=== PATIENT | female | born 1975 | race Caucasian/White ===

== ENCOUNTER → 2016-05-23 | Outpatient (CLI) | payer OTHER ==
[~2016-05-23] MED LIST: ALBUTEROL17 GM INH; AMOXICILLIN500 M1 PO; AMOXICILLIN875 MG PO; BACTRIM DS TABL1 TA1 PO; BACTROBAN22 GM TOP; BENTYL10 MG PO; BENTYL20 M1; BIRTH CONTROL PILLS; BROMPHED DM; CIPRO PO; CLEOCIN HCL300 M1 PO; DICYCLOMINE HCL20 MG PO; DIFLUCAN PO; FLAGYL; FLAGYL PO; FLEXERIL PO; IBUPROFEN800 MG PO; IMODIUM2 MG PO; LORTAB 5-325 M1 EACH PO; LORTAB 5/500 TA1 TA1 PO; METHADOSE5 MG PO; NEURONTIN300 MG PO; NEURONTIN600 MG PO; NO MEDICATIONS; OMEPRAZOLE40 M1 PO; PEPCID AC20 M2 PO; PERCOCET 5-3251 TAB PO; PHENERGAN25 MG PO; PREDNISONE; PREDNISONE PO; PSEUDOEPHEDRIN120 M1 PO; PYRIDIUM100 MG PO; STERAPRED5 MG/DOSE1 PO; SYMBICORT INH; TRAMADOL HCL50 M1; TRAMADOL HCL50 M1 PO; VICODIN PO; VOLTAREN75 MG PO; WAL-PHED PO; WELLBUTRIN PO; ZITHROMAX1 G/PKT PO; ZOFRAN ODT4 MG PO; ZOFRAN ODT4 MG/UDTAB PO
--- NOTE | ~2016-05-23 | CR63 ---
[facility]. [facility] A Service of [facility] & [facility] RADIOLOGY TEXT RESULTS PATIENT: PHANI TROTTER LOCATION: [facility] : 75 UNIT #: [id number] AGE: [address]: ANGELA RENTERIA MD SEX: F ORDER DR: [id number] [address] [address] [id number] O MR#: [id number] Acc #: [id number] NAME: PHANI TROTTER : 1975 SEX: F STUDY DATE/TIME: 05/23/2016 14:40 UNIT: [facility] ROOM: STUDY DESCRIPTION: CR Chest 2 View Attending Physician: Angela Renteria M.D. Referring Physician: Angela Renteria M.D. Ordering Physician: Angela Renteria M.D. Primary Care Physician: Angelita Gonzales Delroy MEDICAL IMAGING REPORT This report is preliminary unless electronic signature is present. EXAM Chest 2 views, 05/23/2016. INDICATIONS Worsening cough in a 40-year-old female. Wheezing, pneumonia. Symptoms 2 weeks. Tobacco abuse. History of cervical cancer for 3 years. COPD. TECHNIQUE Two-view chest compared with 04/08/15 FINDINGS Cardiac silhouette is within normal limits. The vascularity is normal. There are calcified granulomas. Lungs are clear. No effusion or pneumothorax. IMPRESSION Calcified granulomatous changes. Otherwise negative chest. No significant change. Dictated by... Dionisio Sampson M.D. THIS IS AN ELECTRONICALLY VERIFIED REPORT Dionisio Sampson M.D. at 05/24/2016 7:36 AM Saurav TD: 05/23/2016 20:48 JOB #: [id number] MEDICAL IMAGING REPORT Page 1 of 1
== END | disposition home or self-care (01) ==
LOC: SRAD 14:34
DX: J43.9 Emphysema, unspecified (principal)
CPT/HCPCS: 71020

== ENCOUNTER 2016-10-28 09:22 | Emergency (ER) | payer OTHER ==
[2016-10-28 10:21] LABS: MICRO INDICATED? NO; URINE APPEARANCE CLEAR; URINE BILIRUBIN NEG (NEG); URINE BLOOD NEG (NEG); URINE COLOR YELLOW; URINE GLUCOSE NEG (NORM); URINE KETONE NEG (NEG); URINE LEUKOCYTE ESTERASE NEG (NEG); URINE NITRATE NEG (NEG); URINE PH 5.5 (5-8); URINE PROTEIN NEG (NEG); URINE SOURCE CLEAN CATCH; URINE SPECIFIC GRAVITY 1.025 (1.003-1.035); URINE UROBILINOGEN 0.2 MG/DL (NORM)
[2016-10-28 10:23] LABS: BASOPHIL# 0.1 X10e3 (0-0.3); BASOPHIL% 0.6 % (0-2.5); EOSINOPHIL# 0.2 X10e3 (0-0.7); EOSINOPHIL% 1.7 % (0.0-7.0); HEMATOCRIT 45.3 % (35.0-45.0); HEMOGLOBIN 15.6 gm/dL (12.0-16.0); LYMPHOCYTE# 2.4 X10e3 (1.0-3.5); LYMPHOCYTE% 21.1 % (17.0-45.0); MEAN CELL VOLUME 90.3 FL (83-96); MEAN CORPUSCULAR HGB CONC 34.3 g/dL (30-36); MONOCYTE# 0.9 X10e3 (0-1.0); MONOCYTE% 7.5 % (3.0-12.0); NEUTROPHIL# 7.9 X10e3 (1.5-7.1); NEUTROPHIL% 69.1 % (40-75); PLATELET COUNT 213 X10e3 (140-420); RED BLOOD COUNT 5.02 X10e (3.90-5.30); RED CELL DISTRIBUTION WIDTH 13.8 % (11.0-15.5); WHITE BLOOD COUNT 11.5 X10e3 (4.0-10.5)
[2016-10-28 10:26] LABS: DIFF IND NO
[2016-10-28 10:39] LABS: ALBUMIN SERUM 4.2 g/dL (3.5-5.0); ALKALINE PHOSPHATASE 43 U/L (32-92); ALT (SGPT) 13 U/L (10-40); AMYLASE 12 U/L (0-46); AST (SGOT) 15 U/L (10-42); BILIRUBIN,TOTAL 0.2 mg/dL (0.2-2.0); BLOOD UREA NITROGEN 20 mg/dL (9-23); BUN/CREATININE RATIO 33.33; CALCIUM SERUM 8.6 mg/dL (8.4-10.2); CARBON DIOXIDE 24 mmol/L (22-31); CHLORIDE 107 mmol/L (100-111); CREATININE SERUM 0.6 mg/dL (0.6-1.4); GLOM FILT RATE Estimated 113.2 mL/min (>60); GLUCOSE FASTING 83 mg/dL (70-110); LIPASE 28 U/L (22-51); POTASSIUM 3.9 mmol/L (3.5-5.1); PROTEIN TOTAL SERUM 7.3 g/dL (6.0-8.3); SODIUM 135 mmol/L (135-145)
[2016-10-28 10:45] LABS: BILIRUBIN, DIRECT <0.1 mg/dL (0.0-0.2); BILIRUBIN,INDIRECT 0.1 mg/dL (0.0-0.9)
[2016-10-28 11:22] LABS: AMPHETAMINE NEG (NEG); BARBITURATES NEG (NEG); BENZODIAZEPINES NEG (NEG); COCAINE NEG (NEG); MARIJUANA NEG (NEG); OPIATES NEG (NEG); TRICYCLIC ANTIDEPRESSANTS NEG (NEG); U METHADONE NEG (NEG)
== END 2016-10-28 13:03 | disposition home or self-care (01) ==
LOC: SED 09:22
PROVIDERS: Emergency Medicine
DX: K29.00 Acute gastritis without bleeding (principal); K21.9 Gastro-esophageal reflux disease without esophagitis; I10 Essential (primary) hypertension; J44.9 Chronic obstructive pulmonary disease, unspecified; N80.9 Endometriosis, unspecified; Z98.51 Tubal ligation status; Z98.890 Other specified postprocedural states; F17.210 Nicotine dependence, cigarettes, uncomplicated; Z88.5 Allergy status to narcotic agent; Z79.899 Other long term (current) drug therapy
CPT/HCPCS: 36415; 80048; 80076; 80307; 81003; 82150; 83690; 84703; 85025; 96361; 96374; 96375; 99284; C9113; J1170; J2405

== ENCOUNTER → 2016-11-14 | Outpatient (CLI) | payer OTHER ==
--- NOTE | ~2016-11-14 | NM22 ---
[facility] A Service of [facility] & [facility] RADIOLOGY TEXT RESULTS PATIENT: PHANI TROTTER LOCATION: [facility] : 75 UNIT #: [id number] AGE: [address]: Tai Ruiz MD SEX: F ORDER DR: [id number] [facility] [address] [place], [place] [address] [id number] O MR#: [id number] Acc #: [id number] NAME: PHANI TROTTER : 1975 SEX: F STUDY DATE/TIME: 11/14/2016 11:52 UNIT: [facility] ROOM: STUDY DESCRIPTION: NM Hepatobiliary W GB Pharm Attending Physician: Tai Ruiz M.D. Referring Physician: Tai Ruiz M.D. Ordering Physician: Tai Ruiz M.D. Primary Care Physician: Angelita Gonzales Delroy MEDICAL IMAGING REPORT This report is preliminary unless electronic signature is present EXAM Hepatobiliary study with gallbladder stimulation HISTORY Abdominal pain intermittently with increase in last 2-3 months. FINDINGS Patient was given 6 mCi of Tc 99m Choletec and there was normal distribution throughout the liver with visualization of the gallbladder and common bile duct and small bowel by 60 minutes. At 60 minutes the patient was given 1.5 mcg of Kinevac and 30 minute ejection fraction was 93%. IMPRESSION Normal study with ejection fraction of 93%. Dictated by... George Sung M.D. THIS IS AN ELECTRONICALLY VERIFIED REPORT George Sung M.D. at 11/15/2016 7:01 AM NORA/kimberly TD: 11/15/2016 00:49 JOB #: [id number] MEDICAL IMAGING REPORT Page 1 of 1 COPY
== END | disposition home or self-care (01) ==
LOC: CNUC 11:02
DX: R10.9 Unspecified abdominal pain (principal)
CPT/HCPCS: 78227; A9537; J2805